=== PATIENT | male | born 1980 | race Caucasian/White ===

== ENCOUNTER 2018-01-05 22:40 | Emergency (ER) | payer SELFPAY ==
[~2018-01-05] VITALS: Ht 167.6 cm; Wt 99.8 kg
[~2018-01-05 22:40] MED LIST: ALLO100 PO; COLCHICINE0.6 MG PO; CYCL10 PO; IBUP800 PO; INDO50 PO; Indomethacin50 MG PO; Naprosyn500 MG PO; Norco 5-325 Ta1 EACH PO; Percocet 5-3251 EACH PO; Ultram50 MG PO
[2018-01-06] MEDS ORDERED: INDO50 PO (01:20)
[2018-01-06] MEDS ORDERED: Norco 5-325 Ta1 EACH PO (02:25)
[2018-01-06] MEDS ORDERED: Prednisone50 MG PO (02:25)
== END 2018-01-06 02:43 | disposition home or self-care (01) ==
LOC: ER 22:40
DX: M10.9 Gout, unspecified (principal); Z87.891 Personal history of nicotine dependence
CPT/HCPCS: 99283; J1100

== ENCOUNTER 2018-07-17 12:07 | Emergency (ER) | payer OTHER ==
[~2018-07-17] VITALS: Ht 175.3 cm; Wt 99.8 kg
[~2018-07-17 12:07] MED LIST changes: +Prednisone50 MG PO
== END 2018-07-17 14:03 | disposition home or self-care (01) ==
LOC: ER 12:07
DX: M10.9 Gout, unspecified (principal); Z79.899 Other long term (current) drug therapy; Z87.891 Personal history of nicotine dependence
CPT/HCPCS: 99283

== ENCOUNTER 2018-08-17 11:15 | Emergency (ER) | payer OTHER ==
[~2018-08-17] VITALS: Ht 175.3 cm; Wt 106.6 kg
[2018-08-17] MEDS ORDERED: Percocet 5-3251 EACH PO (11:39)
[2018-08-17] MEDS ORDERED: Prednisone20 MG PO (11:39)
[2018-08-17] MEDS ORDERED: Indomethacin50 MG PO (11:39)
== END 2018-08-17 11:45 | disposition home or self-care (01) ==
LOC: ER 11:15
DX: M10.9 Gout, unspecified (principal); Z79.899 Other long term (current) drug therapy; Z87.891 Personal history of nicotine dependence
CPT/HCPCS: 99283

== ENCOUNTER 2018-09-02 17:02 | Emergency (ER) | payer OTHER ==
[~2018-09-02] VITALS: Ht 175.3 cm; Wt 102.1 kg
[~2018-09-02 17:02] MED LIST changes: +Prednisone20 MG PO
[2018-09-02] MEDS ORDERED: Prednisone10 MG PO (18:07)
[2018-09-02] MEDS ORDERED: Percocet 5-3251 EACH PO (18:25)
== END 2018-09-02 18:40 | disposition home or self-care (01) ==
LOC: ER 17:02
DX: M10.9 Gout, unspecified (principal); Z87.891 Personal history of nicotine dependence; Z79.899 Other long term (current) drug therapy
CPT/HCPCS: 99282

== ENCOUNTER 2018-10-24 03:48 | Emergency (ER) | payer OTHER ==
[~2018-10-24] VITALS: Ht 175.3 cm; Wt 102.1 kg
[~2018-10-24 03:48] MED LIST changes: +Prednisone10 MG PO
[2018-10-24] MEDS ORDERED: ONDA4ODT MM (04:16)
[2018-10-24] MEDS ORDERED: Norco 5-325 Ta1 EACH PO (04:16)
== END 2018-10-24 04:59 | disposition home or self-care (01) ==
LOC: ER 03:48
DX: M10.9 Gout, unspecified (principal); Z79.899 Other long term (current) drug therapy; Z79.52 Long term (current) use of systemic steroids; Z87.891 Personal history of nicotine dependence
CPT/HCPCS: 96372; 99283-25; A9270-GY; J1170; J1885

== ENCOUNTER 2018-12-10 17:49 | Emergency (ER) | payer OTHER ==
[~2018-12-10] VITALS: Ht 175.3 cm; Wt 104.3 kg
[~2018-12-10 17:49] MED LIST changes: +ONDA4ODT MM
[2018-12-10] MEDS ORDERED: Percocet 5-3251 EACH PO (18:13)
[2018-12-10] MEDS ORDERED: Pepcid20 MG PO (18:13)
[2018-12-10] MEDS ORDERED: PRED10 PO (18:13)
== END 2018-12-10 18:48 | disposition home or self-care (01) ==
LOC: ER 17:49
DX: M10.9 Gout, unspecified (principal); Z79.899 Other long term (current) drug therapy; Z87.891 Personal history of nicotine dependence
CPT/HCPCS: 96372; 99283-25; A9270; J1170; J7512

== ENCOUNTER 2018-12-16 09:49 | Emergency (ER) | payer OTHER ==
[~2018-12-16] VITALS: Ht 175.3 cm; Wt 106.6 kg
[~2018-12-16 09:49] MED LIST changes: +PRED10 PO; +Pepcid20 MG PO
[2018-12-16] MEDS ORDERED: Indomethacin50 MG PO (09:58)
[2018-12-16] MEDS ORDERED: Percocet 5-3251 EACH PO (10:41)
== END 2018-12-16 10:58 | disposition home or self-care (01) ==
LOC: ER 09:49
DX: M10.9 Gout, unspecified (principal); Z79.52 Long term (current) use of systemic steroids; Z87.891 Personal history of nicotine dependence
CPT/HCPCS: 96372; 99283-25; J1170

== ENCOUNTER → 2018-12-24 | Outpatient (CLI) | payer OTHER ==
[~2018-12-24] MED LIST changes: +IBUP600 PO; +MITIGARE0.6 MG PO; +Voltaren100 GM TOP
[2018-12-24 11:46] LABS: BASOPHILS ABSOLUTE AUTO 0.04 K/mm3 (0.00-0.23); BASOPHILS PERCENT AUTO 0 % (0-2); EOSINOPHILS ABSOLUTE AUTO 0.07 K/mm3 (0.00-0.68); EOSINOPHILS PERCENT AUTO 1 % (0-6); Hematocrit 49.2 % (37.0-53.0); IMMATURE GRAN ABSOLUTE AUTO 0.06 K/mm3 (0.00-0.10); IMMATURE GRAN PERCENT AUTO 1 % (0-1); LYMPHOCYTES ABSOLUTE AUTO 1.75 K/mm3 (0.84-5.20); LYMPHOCYTES PERCENT AUTO 16 % (21-46); MONOCYTES ABSOLUTE AUTO 0.69 K/mm3 (0.16-1.47); MONOCYTES PERCENT AUTO 6 % (4-13); Mean Corpuscular HGB 30.1 pg (26.0-34.0); Mean Corpuscular HGB Conc 34.6 g/dL (31.5-36.5); Mean Corpuscular Volume 87 fL (80-100); Mean Platelet Volume 10.8 fL (9.1-12.4); NEUTROPHILS ABSOLUTE AUTO 8.42 K/mm3 (1.96-9.15); NEUTROPHILS PERCENT AUTO 76 % (41-73); Platelet Count 227 K/mm3 (150-400); RDW Coefficient Variation 13.4 % (11.7-14.2); RDW Standard Deviation 42.6 fL (35.1-46.3); Red Blood Cell Count 5.65 M/mm3 (4.30-5.90); White Blood Cell Count 11.03 K/mm3 (4.00-11.30)
[2018-12-24 11:55] LABS: Albumin, Blood 3.9 g/dL (3.4-5.0); Albumin/Globulin Ratio 1.1 (0.8-1.8); Bilirubin, Total 0.2 mg/dL (0.1-1.0); Bun/Creatinine Ratio 8.3 (12.0-20.0); Calcium, Blood 9.1 mg/dL (8.5-10.1); Creatinine, Blood 1.33 mg/dL (0.60-1.20); Globulin, Blood 3.7 g/dL (2.2-4.0); Total Protein, Blood 7.6 g/dL (6.4-8.2); Uric Acid, Blood 8.3 mg/dL (3.5-7.2)
== END | disposition home or self-care (01) ==
LOC: LAB SHORT 11:39 → LAB EV 11:39
PROVIDERS: Family Medicine
DX: M10.9 Gout, unspecified (principal)
CPT/HCPCS: 80053; 84550; 85025; 85651; 86140

== ENCOUNTER 2019-02-13 10:16 | Emergency (ER) | payer OTHER ==
[~2019-02-13] VITALS: Ht 175.3 cm; Wt 102.1 kg
[~2019-02-13 10:16] MED LIST changes: -IBUP600 PO; -MITIGARE0.6 MG PO; -Voltaren100 GM TOP
[2019-02-13] MEDS ORDERED: MITIGARE0.6 MG PO (10:27)
[2019-02-13] MEDS ORDERED: Voltaren100 GM TOP (10:43)
[2019-02-13] MEDS ORDERED: CYCL10 PO (10:43)
[2019-02-13] MEDS ORDERED: IBUP600 PO (10:43)
== END 2019-02-13 10:54 | disposition home or self-care (01) ==
LOC: ER 10:16
DX: S46.911A Strain of unspecified muscle, fascia and tendon at shoulder and upper arm level, right arm, initial encounter (principal); W22.8XXA Striking against or struck by other objects, initial encounter; Z79.899 Other long term (current) drug therapy
CPT/HCPCS: 96372; 99283-25; A9270-GY; J1885

== ENCOUNTER 2019-04-18 02:32 | Emergency (ER) | payer OTHER ==
[~2019-04-18] VITALS: Ht 177.8 cm; Wt 99.8 kg
[~2019-04-18 02:32] MED LIST changes: +IBUP600 PO; +MITIGARE0.6 MG PO; +Voltaren100 GM TOP
== END 2019-04-18 04:32 | disposition home or self-care (01) ==
LOC: ER 02:32
DX: M10.9 Gout, unspecified (principal); Z87.891 Personal history of nicotine dependence; Z79.899 Other long term (current) drug therapy
CPT/HCPCS: 96372; 99283-25; A9270; A9270-GY; J1170

== ENCOUNTER 2019-08-27 16:13 | Emergency (ER) | payer OTHER ==
[~2019-08-27] VITALS: Ht 175.3 cm; Wt 99.8 kg
[2019-08-27] MEDS ORDERED: PRINIVIL10 MG PO (16:24)
[2019-08-27] MEDS ORDERED: Roxicodone5 MG PO (16:52)
== END 2019-08-27 16:58 | disposition home or self-care (01) ==
LOC: ER 16:13
DX: M10.9 Gout, unspecified (principal); Z79.899 Other long term (current) drug therapy; Z87.891 Personal history of nicotine dependence
CPT/HCPCS: 96372; 99282-25; J1170

== ENCOUNTER 2019-09-27 03:03 | Emergency (ER) | payer OTHER ==
[~2019-09-27] VITALS: Ht 175.3 cm; Wt 104.3 kg
[~2019-09-27 03:03] MED LIST changes: +PRINIVIL10 MG PO; +Roxicodone5 MG PO
== END 2019-09-27 05:05 | disposition home or self-care (01) ==
LOC: ER 03:03
DX: M10.9 Gout, unspecified (principal); Z79.899 Other long term (current) drug therapy; Z87.891 Personal history of nicotine dependence
CPT/HCPCS: 96372; 99283-25; A9270; J1170; J1885; J7512

== ENCOUNTER 2019-10-15 06:59 | Emergency (ER) | payer OTHER ==
[~2019-10-15] VITALS: Ht 175.3 cm; Wt 104.3 kg
[2019-10-15] MEDS ORDERED: Prinivil10 MG PO (07:21)
[2019-10-15] MEDS ORDERED: Norco 5-325 Ta1 EACH PO (07:28)
== END 2019-10-15 07:35 | disposition home or self-care (01) ==
LOC: ER 06:59
DX: M10.9 Gout, unspecified (principal); Z79.899 Other long term (current) drug therapy; Z87.891 Personal history of nicotine dependence
CPT/HCPCS: 99283

== ENCOUNTER 2019-11-18 19:22 | Emergency (ER) | payer OTHER ==
[~2019-11-18] VITALS: Ht 175.3 cm; Wt 104.3 kg
[~2019-11-18 19:22] MED LIST changes: +Prinivil10 MG PO
[2019-11-18] MEDS ORDERED: PRED10 PO (19:30)
[2019-11-18] MEDS ORDERED: Roxicodone5 MG PO (19:30)
== END 2019-11-18 19:34 | disposition home or self-care (01) ==
LOC: ER 19:22
DX: M10.9 Gout, unspecified (principal); Z79.899 Other long term (current) drug therapy; Z87.891 Personal history of nicotine dependence
CPT/HCPCS: 99282

== ENCOUNTER 2020-11-21 17:18 | Emergency (ER) | payer BC ==
[~2020-11-21] VITALS: Ht 175.3 cm; Wt 104.3 kg
[~2020-11-21 17:18] MED LIST changes: +Ativan1 MG PO; +LISI5 PO; +SERT20L
[2020-11-21 17:53] LABS: BASOPHILS ABSOLUTE AUTO 0.03 K/mm3 (0.00-0.23); BASOPHILS PERCENT AUTO 0 % (0-2); EOSINOPHILS ABSOLUTE AUTO 0.13 K/mm3 (0.00-0.68); EOSINOPHILS PERCENT AUTO 2 % (0-6); Hematocrit 43.3 % (37.0-53.0); IMMATURE GRAN ABSOLUTE AUTO 0.02 K/mm3 (0.00-0.10); IMMATURE GRAN PERCENT AUTO 0 % (0-1); LYMPHOCYTES ABSOLUTE AUTO 2.03 K/mm3 (0.84-5.20); LYMPHOCYTES PERCENT AUTO 23 % (21-46); MONOCYTES ABSOLUTE AUTO 0.59 K/mm3 (0.16-1.47); MONOCYTES PERCENT AUTO 7 % (4-13); Mean Corpuscular HGB 29.6 pg (26.0-34.0); Mean Corpuscular HGB Conc 34.6 g/dL (31.5-36.5); Mean Corpuscular Volume 86 fL (80-100); Mean Platelet Volume 11.1 fL (9.1-12.4); NEUTROPHILS ABSOLUTE AUTO 6.12 K/mm3 (1.96-9.15); NEUTROPHILS PERCENT AUTO 69 % (41-73); Platelet Count 206 K/mm3 (150-400); RDW Standard Deviation 40.1 fL (35.1-46.3); Red Blood Cell Count 5.06 M/mm3 (4.30-5.90); White Blood Cell Count 8.92 K/mm3 (4.00-11.30)
[2020-11-21 18:13] LABS: Alanine Aminotransfer (ALT/SGP 63 U/L (12-78); Albumin, Blood 3.9 g/dL (3.4-5.0); Albumin/Globulin Ratio 1.1 (0.8-1.8); Alk Phos 97 U/L (50-136); Anion Gap 8 mmol/L (6-16); Aspartate Aminotrans (AST/SGOT 42 U/L (12-37); Bilirubin, Total 0.3 mg/dL (0.1-1.0); Blood Urea Nitrogen 9 mg/dL (8-24); Bun/Creatinine Ratio 8.1 (12.0-20.0); CO2, Blood 22 mmol/L (21-32); Chloride, Blood 110 mmol/L (98-108); Creatinine, Blood 1.11 mg/dL (0.60-1.20); Globulin, Blood 3.5 g/dL (2.2-4.0); Glomerular Filtration Rate >60 (60-); Glucose, Blood 145 mg/dL (70-99); Potassium, Blood 3.8 mmol/L (3.5-5.5); Sodium, Blood 140 mmol/L (136-145); Total Protein, Blood 7.4 g/dL (6.4-8.2); Troponin I <0.015 ng/mL (0.000-0.040)
[2020-11-21] MEDS ORDERED: LORA.5 PO (21:59)
== END 2020-11-21 22:32 | disposition home or self-care (01) ==
LOC: ER 17:18
PROVIDERS: Physician Assistant
DX: F41.9 Anxiety disorder, unspecified (principal); R07.9 Chest pain, unspecified; I10 Essential (primary) hypertension; Z79.899 Other long term (current) drug therapy
CPT/HCPCS: 36415; 71046; 80053; 84484; 85025; 93005; 93010; 96374; 99284-25; A9270; J2060

== ENCOUNTER 2020-12-21 16:28 | Emergency (ER) | payer BC ==
[~2020-12-21] VITALS: Ht 175.3 cm; Wt 107.7 kg
[~2020-12-21 16:28] MED LIST changes: +LORA.5 PO
[2020-12-21] MEDS ORDERED: Deltasone 10 mg10 MG PO (17:07)
[2020-12-21] MEDS ORDERED: INDO50 PO (17:08)
== END 2020-12-21 17:19 | disposition home or self-care (01) ==
LOC: ER 16:28
DX: M10.9 Gout, unspecified (principal); I10 Essential (primary) hypertension; F41.9 Anxiety disorder, unspecified; Z79.899 Other long term (current) drug therapy; Z87.891 Personal history of nicotine dependence
CPT/HCPCS: 96372; 99282-25; J1885; J7512

== ENCOUNTER 2021-01-06 03:00 | Emergency (ER) | payer BC ==
[~2021-01-06] VITALS: Ht 175.3 cm; Wt 104.3 kg
[~2021-01-06 03:00] MED LIST changes: +Deltasone 10 mg10 MG PO
== END 2021-01-06 06:32 | disposition home or self-care (01) ==
LOC: ER 03:00
DX: M10.9 Gout, unspecified (principal); I10 Essential (primary) hypertension; Z87.891 Personal history of nicotine dependence
CPT/HCPCS: 96372; 99283-25; A9270; J1100

== ENCOUNTER 2021-02-16 02:05 | Emergency (ER) | payer BC ==
[~2021-02-16] VITALS: Ht 175.3 cm; Wt 99.8 kg
[2021-02-16] MEDS ORDERED: PROP10 PO (03:26)
[2021-02-16] MEDS ORDERED: ZOLOFT100 M6 PO (03:26)
[2021-02-16] MEDS ORDERED: PARO30 PO (03:26)
[2021-02-16] MEDS ORDERED: Prednisone20 MG PO (06:14)
== END 2021-02-16 07:05 | disposition home or self-care (01) ==
LOC: ER 02:05
DX: M10.9 Gout, unspecified (principal); I10 Essential (primary) hypertension; Z79.899 Other long term (current) drug therapy
CPT/HCPCS: 96372; 99283-25; J1170; J1885

== ENCOUNTER 2021-06-14 22:57 | Emergency (ER) | payer BC ==
[~2021-06-14] VITALS: Ht 177.8 cm; Wt 104.3 kg
[~2021-06-14 22:57] MED LIST changes: +PARO30 PO; +PROP10 PO; +ZOLOFT100 M6 PO
[2021-06-15] MEDS ORDERED: PRED20 PO (00:11)
[2021-06-15] MEDS ORDERED: HYDR1TAB94 PO (19:15)
== END 2021-06-15 00:27 | disposition home or self-care (01) ==
LOC: ER 22:57
DX: M10.9 Gout, unspecified (principal); I10 Essential (primary) hypertension
CPT/HCPCS: 99282; A9270; J7512

== ENCOUNTER 2021-06-28 21:29 | Emergency (ER) | payer BC ==
[~2021-06-28] VITALS: Ht 175.3 cm; Wt 104.3 kg
[~2021-06-28 21:29] MED LIST changes: +HYDR1TAB94 PO; +PRED20 PO
[2021-06-29] MEDS ORDERED: IBUP400 PO (00:10)
[2021-06-29] MEDS ORDERED: ACET500 PO (00:10)
[2021-06-29] MEDS ORDERED: Robaxin750 MG PO (00:10)
== END 2021-06-29 00:38 | disposition home or self-care (01) ==
LOC: ER 21:29
DX: S92.534A Nondisplaced fracture of distal phalanx of right lesser toe(s), initial encounter for closed fracture (principal); S39.012A Strain of muscle, fascia and tendon of lower back, initial encounter; I10 Essential (primary) hypertension; W22.8XXA Striking against or struck by other objects, initial encounter
CPT/HCPCS: 72100; 73660; 96372; 99283-25; A9270; J1885

== ENCOUNTER 2021-10-31 00:02 | Emergency (ER) | payer OTHER ==
[~2021-10-31] VITALS: Ht 175.3 cm; Wt 104.3 kg
[~2021-10-31 00:02] MED LIST changes: +ACET500 PO; +IBUP400 PO; +RAYOS PO; +Robaxin750 MG PO
== END 2021-10-31 05:46 | disposition home or self-care (01) ==
LOC: ER 00:02
DX: M10.9 Gout, unspecified (principal); I10 Essential (primary) hypertension; Z79.899 Other long term (current) drug therapy
CPT/HCPCS: 96374; 96375; 99283-25; A9270; J1170; J1885

== ENCOUNTER 2021-11-27 00:21 | Emergency (ER) | payer OTHER ==
[~2021-11-27] VITALS: Ht 175.3 cm; Wt 99.8 kg
== END 2021-11-27 03:00 | disposition home or self-care (01) ==
LOC: ER 00:21
DX: M10.9 Gout, unspecified (principal); I10 Essential (primary) hypertension; Z79.899 Other long term (current) drug therapy
CPT/HCPCS: A9270; J1170

== ENCOUNTER 2022-01-25 18:33 | Emergency (ER) | payer OTHER ==
[~2022-01-25] VITALS: Ht 175.3 cm; Wt 104.3 kg
[2022-01-25] MEDS ORDERED: PRED20 PO (19:24)
== END 2022-01-25 19:43 | disposition home or self-care (01) ==
LOC: ER 18:33
DX: M10.9 Gout, unspecified (principal); I10 Essential (primary) hypertension; Z87.891 Personal history of nicotine dependence; Z79.899 Other long term (current) drug therapy; Z79.52 Long term (current) use of systemic steroids
CPT/HCPCS: 99283; A9270; J7512

== ENCOUNTER 2022-03-30 02:05 | Emergency (ER) | payer OTHER ==
[~2022-03-30] VITALS: Ht 175.3 cm; Wt 104.3 kg
[2022-03-30] MEDS ORDERED: PRED10 PO (05:49)
[2022-03-30] MEDS ORDERED: IBUP800 PO (05:49)
[2022-03-30] MEDS ORDERED: Norco 5-325 Ta1 EACH PO (05:49)
== END 2022-03-30 06:17 | disposition home or self-care (01) ==
LOC: ER 02:05
DX: M10.9 Gout, unspecified (principal); I10 Essential (primary) hypertension; F41.9 Anxiety disorder, unspecified; Z79.899 Other long term (current) drug therapy; Z79.52 Long term (current) use of systemic steroids
CPT/HCPCS: 96372; 99283-25; A9270; J1170

== ENCOUNTER → 2022-09-27 | Outpatient (CLI) | payer OTHER | END | disposition home or self-care (01) | LOC: LAB SHORT 11:22 | DX: M10.9 Gout, unspecified (principal) | CPT/HCPCS: 84550 ==

== ENCOUNTER 2024-01-19 19:45 | Emergency (ER) | payer OTHER ==
[~2024-01-19] VITALS: Ht 175.3 cm; Wt 99.8 kg
[~2024-01-19 19:45] MED LIST changes: +BUPR150ER; +ZOLOFT10013 PO
[2024-01-19 20:00] VITALS: BP 154/80
[2024-01-19] MEDS ORDERED: Ketorolac Tromethamine 30mg Vial IM ONE (21:45)
[2024-01-19] MEDS ORDERED: Acetaminophen 500 MG Tab PO ONE (21:45)
== END 2024-01-19 22:43 | disposition home or self-care (01) ==
LOC: ER 19:45
DX: S43.401A Unspecified sprain of right shoulder joint, initial encounter (principal); W01.10XA Fall on same level from slipping, tripping and stumbling with subsequent striking against unspecified object, initial encounter; Z79.899 Other long term (current) drug therapy; M10.9 Gout, unspecified; I10 Essential (primary) hypertension
CPT/HCPCS: 73030; 96372; 99283-25; A9270; J1885

== ENCOUNTER 2024-02-05 10:47 | Inpatient (IN) | payer OTHER ==
[~2024-02-05] VITALS: Ht 175.3 cm; Wt 82.8 kg
[2024-02-05] VITALS (13 sets, daily range): BP systolic 129–173; BP diastolic 83–110
[2024-02-05] MEDS ORDERED: Ketorolac Tromethamine 15mg Vial IV ONE (11:15)
[2024-02-05] MEDS ORDERED: NS 1,000 ML IV SCH ×2 (11:15→12:55)
[2024-02-05 11:38] LABS: BASOPHILS ABSOLUTE AUTO 0.04 K/mm3 (0.00-0.23); BASOPHILS PERCENT AUTO 0 % (0-2); EOSINOPHILS ABSOLUTE AUTO 0.01 K/mm3 (0.00-0.68); EOSINOPHILS PERCENT AUTO 0 % (0-6); Hematocrit 44.3 % (37.0-53.0); Hemoglobin 16.7 g/dL (13.5-17.5); IMMATURE GRAN ABSOLUTE AUTO 0.07 K/mm3 (0.00-0.10); IMMATURE GRAN PERCENT AUTO 0 % (0-1); LYMPHOCYTES ABSOLUTE AUTO 1.76 K/mm3 (0.84-5.20); LYMPHOCYTES PERCENT AUTO 10 % (21-46); MONOCYTES ABSOLUTE AUTO 0.81 K/mm3 (0.16-1.47); MONOCYTES PERCENT AUTO 5 % (4-13); Mean Corpuscular HGB 30.5 pg (26.0-34.0); Mean Corpuscular HGB Conc 37.7 g/dL (31.5-36.5); Mean Corpuscular Volume 81 fL (80-100); Mean Platelet Volume 13.2 fL (9.1-12.4); NEUTROPHILS ABSOLUTE AUTO 14.79 K/mm3 (1.96-9.15); NEUTROPHILS PERCENT AUTO 85 % (41-73); Platelet Count 281 K/mm3 (150-400); RDW Coefficient Variation 12.4 % (11.7-14.2); RDW Standard Deviation 36.2 fL (35.1-46.3); Red Blood Cell Count 5.48 M/mm3 (4.30-5.90); White Blood Cell Count 17.48 K/mm3 (4.00-11.30)
[2024-02-05 12:00] LABS: Magnesium, Blood 2.3 mg/dL (1.6-2.4)
[2024-02-05 12:02] LABS: Albumin, Blood 4.2 g/dL (3.4-5.0); Bilirubin, Total 1.1 mg/dL (0.1-1.0); Bun/Creatinine Ratio 18.6 (12.0-20.0); Calcium, Blood 10.3 mg/dL (8.5-10.1); Creatinine, Blood 1.02 mg/dL (0.60-1.20); Globulin, Blood 4.2 g/dL (2.2-4.0); Potassium, Blood 4.5 mmol/L (3.5-5.5); Total Protein, Blood 8.4 g/dL (6.4-8.2)
[2024-02-05] MEDS ORDERED: ESCI10 (12:44)
[2024-02-05] MEDS ORDERED: FentaNYL Citrate 50 MCG/ML 2 ML Injection IV ONE (12:55)
[2024-02-05] MEDS ORDERED: Ondansetron HCl 2 MG / ML 2ML Vial IV ONE (12:55)
[2024-02-05] MEDS ORDERED: HYDROmorphone HCl/Pf 1MG SYR IV PRN ×2 (13:25→17:05)
[2024-02-05] MEDS ORDERED: CeFAZolin Sodium 2,000 MG in NS 100 ML IV SCH (16:00)
[2024-02-05 16:49] LABS: Albumin, Blood 3.7 g/dL (3.4-5.0); Bilirubin, Total 0.8 mg/dL (0.1-1.0); Bun/Creatinine Ratio 17.4 (12.0-20.0); Calcium, Blood 9.1 mg/dL (8.5-10.1); Creatinine, Blood 1.15 mg/dL (0.60-1.20); Globulin, Blood 3.7 g/dL (2.2-4.0); Potassium, Blood 5.1 mmol/L (3.5-5.5); Total Protein, Blood 7.4 g/dL (6.4-8.2)
[2024-02-05] MEDS ORDERED: Ondansetron HCl 2 MG / ML 2ML Vial IV PRN (17:05)
[2024-02-05] MEDS ORDERED: Dextrose 50% 50 ML Syringe IV PRN (17:15)
[2024-02-05] MEDS ORDERED: Insulin Regular 100 Unit/ML 1ML Dose IV ONE (17:15)
[2024-02-05] MEDS ORDERED: Potassium Chloride 20 MEQ in Sodium Chloride 0.45% 1,000 ML IV SCH (17:30)
[2024-02-05] MEDS ORDERED: Insulin Human Regular 100 UNIT in NS 100 ML IV SCH (17:35)
[2024-02-05] MEDS ORDERED: Zolpidem Tartrate 10 MG Tab PO PRN (18:40)
[2024-02-05] MEDS ORDERED: Pantoprazole Sodium 40 MG Injection IV SCH (19:00)
[2024-02-05 19:06] LABS: Base Excess Venous -8.8 mmol/L; Bicarbonate Venous 18.6 mmol/L (24.0-30.0); PCO2 Venous 28.7 mmHg (38-42); pH Blood Venous 7.37 (7.34-7.37)
[2024-02-05 19:54] LABS: Source, Urine Clean Catch
[2024-02-05 20:03] LABS: Appearance, Urine Clear (Clear); Bilirubin, Urine Neg (Neg); Blood, Urine Neg (Neg); Color, Urine Yellow (P-Yellow); Glucose Qualitative, Urine 4+ (Neg); Ketones, Urine 3+ (Neg); Leukocyte Esterase, Urine Neg (Neg); Nitrite, Urine Neg (Neg); Protein, Urine Neg (Neg); Specific Gravity, Urine 1.015 (1.003-1.022); Urobilinogen, Urine NORM (Normal)
[2024-02-05 20:37] LABS: Bun/Creatinine Ratio 18.7 (12.0-20.0); Calcium, Blood 8.7 mg/dL (8.5-10.1); Creatinine, Blood 1.07 mg/dL (0.60-1.20)
[2024-02-05] MEDS ORDERED: HydrALAZINE HCl 20 MG / ML 1ML Vial IV PRN (21:15)
--- NOTE | 2024-02-05 22:00 | NUR ---
ARRIVAL TO ICU PT ARRIVED TO ICU AT 1850. RECIEVED REPORT FROM BARI RN; ADMIT FOR DKA, AND CHOLECYSTITIS WITH CHOLELITHIASIS; CURRENTLY ON AN INSULIN GTT; SEE FLOWSHEET FOR TITRATION. HE IS A/O X4 AND ABLE TO MAKE HIS NEEDS KNOWN. SAFELY AMBULATES FROM BED TO USE URINAL BUT STILL ENCOURAGED TO USE CALL LIGHT FOR LINE MANAGEMENT. SPO2 >98% ON RA. AFEBRILE. HR 60-70'S. BP STABLE. PRN DILAUDID GIVEN FOR 6/10 EPIGASTRIC PAIN; PRN HELPFUL. DR THOMSON AT BEDSIDE TO EVALUATE; HE STATED THAT HE WOULD BE BACK IN THE AM TO FOLLOW UP. PT TOLERATING ICE CHIPS WELL WITH NO NAUSEA. 1/2NS WITH 20MEQ OF KCL INFUSING AT 250ML/HR. SEE ADMISSION ASSESSMENT FOR FULL ASSESSMENT.
[2024-02-05] MEDS ORDERED: CLON.5 PO (23:08)
[2024-02-05] MEDS ORDERED: COLCHICINE0.6 MG PO (23:09)
[2024-02-06] VITALS (23 sets, daily range): BP systolic 122–169; BP diastolic 74–120
--- NOTE | 2024-02-06 | NUR ---
UPDATE CALL MADE TO DR COX REGARDING GLUCOSE <250; SHE PROVIDED ORDERS TO CHANGE TO D5 1/2NS WITH 20MEQ KCL AT 150ML/HR.
[2024-02-06] MEDS ORDERED: D5W-1/2NS KCl 20mEq 1,000 ML IV SCH (00:10)
[2024-02-06 00:42] LABS: Bun/Creatinine Ratio 17.6 (12.0-20.0); Calcium, Blood 8.7 mg/dL (8.5-10.1); Creatinine, Blood 0.97 mg/dL (0.60-1.20); Potassium, Blood 4.1 mmol/L (3.5-5.5)
[2024-02-06 04:48] LABS: Bicarbonate Venous 21.6 mmol/L (24.0-30.0); PCO2 Venous 42.8 mmHg (38-42); pH Blood Venous 7.33 (7.34-7.37)
[2024-02-06 04:49] LABS: Base Excess Venous -3.2 mmol/L
[2024-02-06 04:52] LABS: BASOPHILS ABSOLUTE AUTO 0.02 K/mm3 (0.00-0.23); BASOPHILS PERCENT AUTO 0 % (0-2); EOSINOPHILS ABSOLUTE AUTO 0.07 K/mm3 (0.00-0.68); EOSINOPHILS PERCENT AUTO 1 % (0-6); Hematocrit 36.2 % (37.0-53.0); Hemoglobin 12.9 g/dL (13.5-17.5); IMMATURE GRAN ABSOLUTE AUTO 0.03 K/mm3 (0.00-0.10); IMMATURE GRAN PERCENT AUTO 0 % (0-1); LYMPHOCYTES ABSOLUTE AUTO 3.11 K/mm3 (0.84-5.20); LYMPHOCYTES PERCENT AUTO 23 % (21-46); MONOCYTES ABSOLUTE AUTO 0.76 K/mm3 (0.16-1.47); MONOCYTES PERCENT AUTO 6 % (4-13); Mean Corpuscular HGB 30.4 pg (26.0-34.0); Mean Corpuscular HGB Conc 35.6 g/dL (31.5-36.5); Mean Corpuscular Volume 85 fL (80-100); Mean Platelet Volume 12.4 fL (9.1-12.4); NEUTROPHILS ABSOLUTE AUTO 9.62 K/mm3 (1.96-9.15); NEUTROPHILS PERCENT AUTO 71 % (41-73); Platelet Count 144 K/mm3 (150-400); RDW Coefficient Variation 12.9 % (11.7-14.2); RDW Standard Deviation 39.9 fL (35.1-46.3); Red Blood Cell Count 4.24 M/mm3 (4.30-5.90); White Blood Cell Count 13.61 K/mm3 (4.00-11.30)
[2024-02-06 05:18] LABS: Beta-hydroxybutyrate 2.5 mg/dL (0.2-2.8); Thyroid Stimulating Hormone 0.682 uIU/mL (0.360-4.800)
[2024-02-06 05:19] LABS: Albumin, Blood 3.1 g/dL (3.4-5.0); Bilirubin, Total 0.6 mg/dL (0.1-1.0); Bun/Creatinine Ratio 16.9 (12.0-20.0); Calcium, Blood 8.2 mg/dL (8.5-10.1); Creatinine, Blood 0.89 mg/dL (0.60-1.20); Potassium, Blood 3.9 mmol/L (3.5-5.5); Total Protein, Blood 6.1 g/dL (6.4-8.2)
--- NOTE | 2024-02-06 06:34 | NUR ---
SHIFT SUMMARY PT SLEEPING BUT FULLY AROUSABLE O X4. PT AMBULATORY. ROOM AIR SATS >94%. LUNGS CLEAR IN ALL DAN. H/O SLEEP APNEA W CPAP AT HOME BUT PT DID WELL W/O. SINUS RHYTHYM WITH HR IN 50S/60S AND BP 120-140/70-90. EPIGASTRIC PAIN 5-7 OUT OF 10 RADIATING TO RIGHT SIDE. ABDOMEN TTP THROUGHOUT WITH MILD DISTENTION. GALLBLADDER INFLAMMTION AND STONES ON RADIOGRAPHY. POTENTIAL SURGERY PENDING RESOLVING GLUCOSE. INSULIN GTT AT 5 UNITS PER HOUR WITH Q HOUR ACCUCHECKS/TITRATION. KCL IN 5% DEXTROSE AND 0.45% NACL @ 150/HOUR. SCDS NOT IN PLACE BUT NEEDED FOR PROPHALAXIS. REPORT TO BE GIVEN TO DEE. USES URINAL.
[2024-02-06 08:19] LABS: Bun/Creatinine Ratio 17.6 (12.0-20.0); Calcium, Blood 8.6 mg/dL (8.5-10.1); Creatinine, Blood 0.85 mg/dL (0.60-1.20); Potassium, Blood 3.8 mmol/L (3.5-5.5)
[2024-02-06] MEDS ORDERED: OxyCODONE HCL 5 MG TAB PO PRN (08:35)
--- NOTE | 2024-02-06 08:48 | NUR ---
Assumed care Patient is alert and oriented. He was sleeping upon arrival but woke easily at bedside report. Patient is on an insulin drip at 5u/hr and was upped to 6u/hr d/t glucose. Patient remains on D51/2ns 20kcl at 150/hr. Dr Trejo came to bedside and pt is going to be transitioned to s/s insulin and long acting, gap is closed. Patient has not voided yet this am but will call for aide. Patient has clear lung sounds t/o, abd soft/tender greatest on left side of abd from rest of abd when palpated. Patient has no edema, maew, afebrile, vs stable. Patient has normal sinus rhythm to sinus jorje at rest. Patient has 2 piv's to left hand and upper FA and a powerglide to right upper FA. All return blood and flush easily. Will continue care as directed.
[2024-02-06] MEDS ORDERED: ClonazePAM 0.5 MG Tab PO PRN (08:50)
[2024-02-06] MEDS ORDERED: Citalopram Hydrobromide 20 MG Tab PO SCH (09:00)
[2024-02-06] MEDS ORDERED: Insulin Glargine-Yfgn 100 Unit/mL 3 ML SYR SC ONE ×2 (09:00→18:00)
[2024-02-06] MEDS ORDERED: Enoxaparin 40 MG/0.4 ML SYR SC SCH (09:00)
[2024-02-06] MEDS ORDERED: Insulin Human Lispro 100 Units/ML 3ML Syringe SC SCH ×2 (12:00→21:00)
[2024-02-06] MEDS ORDERED: Nystatin 100,000 Unit/ML Susp 5 ML UDC SS SCH (13:00)
--- NOTE | 2024-02-06 14:10 | NUR ---
Pt. is awake in bed and welcomes my visit. Pt. is pleasant. Facilitate a life review that included the Pts. new diagnosis. Pt. displayed evidence of acceptance and a realistic understanding of the serious nature of his new diagnosis. Considered matters of melchor and belief. Pt. verbalized questions about the local evangelical community. Gave pastoral support and prayed with the Pt. Pt. verbalized gratitude for the spiritual care visit and welcomed this numerical control machine operator to return any time.
--- NOTE | 2024-02-06 18:30 | NUR ---
END OF SHIFT NOTE PT IS AWAKE ALERT AND ORIENTED. HE IS MAEW. HE HAS BEEN OUT OF BED TWICE TO VOID IN A URINAL. MOVING OK. HE HAS CONTINUED TO COMPLAIN OF PAIN T/O THE DAY NEEDING LONG ACTING OXYCODONE PO TWICE AND SHORT ACTING DILAUDID 0.5MG EVERY 2 TO 3 HRS. HIS PAIN IS LOW ZERO AND HIGH 6 OR 7 WITH NO ACTIVITY AND WITH THE TREATMENT DESCRIBED. PT IS EATTING REGULAR CONSISTENT CARB MEALS AND HOLDING IT DOWN W/O DIFFICULTY. HE WAS ON THE INSULIN GTT THIS MORNING BUT SINCE 1100 AM HE HAS BEEN COVERED WITH HUMALOG 4UNIT AND 8 UNIT FOR HIS GLUCOSE HIGH 318. HE IS ALSO GETTING GLARGINE INSULIN FOR LONG ACTING COVERAGE. 10 UNITS AHS BEEN GIVEN TO HIM THIS AFTERNOON AT 1800. HE REMAINS WITH 2 PIV'S ON LEFT ARM ANND HAND AND 1 POWERGLIDE TO RIGHT UPPER FORARM. HE HAS REMAINED AFEBRILE TODAY. HE IS GETTING AN ANTIBIOTIC/ SEE EMAR. HE HAS HAD A MODERATELY ELEVATED BLOOD PRESSURE BUT NOT OVER SBP GREATER THAN 16- OR 180 SO HE DID NOT GET HYDRALAZINE TODAY. HE HAS BEEN GETTING LOTS OF REAL TIME DIABETIC EDUCATION OVER COVERAGE AND DIET. HE IS EAGER TO UNDERSTAND HOW TO MANAGE THIS NEW DIAGNOSIS BETTER. WAS ALSO ENCOURAGED TO BE PRESENT FOR EDUCATION TO HELP HIM WHEN THEY ARE HOME. SHE HOWEVER HAD TO LEAVE EARLY THIS AM. TESTBOARD OPERATOR TO RESUME CARE AT 1900 TONIGHT.
[2024-02-06] MEDS ORDERED: Lisinopril 5 MG Tab PO SCH (21:00)
--- NOTE | 2024-02-06 21:19 | NUR ---
ASSUMPTION OF CARE: RECEIVED REPORT FROM DEE SURESH AT 1900. PT ALERT AND ORIENTED X4. PLEASANT AND COOPERATIVE, ANSWERS QUESTIONS APPROPRIATELY AND FOLLOWS COMMANDS. ON RA WITH SPO2 >95%. DENIES SOB. NEEDLE LEADER IN PLACE, SR/SB WITH HR 60'S-70'S. DENIES CHEST PAIN/PRESSURE. SBP 140'S-150'S. PT ENDORSES PAIN IN RIGHT UPPER QUADRANT OF ABDOMEN, STATES IT GETS WORSE WHEN EATING/DRINKING AND WITH MOVEMENT. STATES IT IS A CONSTANT, CRAMPING TYPE OF PAIN. ALLEVIATED WITH PRN PAIN MEDS PER MAR. ABLE TO STAND AT BEDSIDE AND USE URINAL. NO BM YET. POWERGLIDE TO RUFINO PATENT AND SALINE LOCKED. PIV'S TO LAC AND LH, PATENT AND SALINE LOCKED. BED LOW AND LOCKED, CALL LIGHT IN REACH.
[2024-02-07] VITALS (9 sets, daily range): BP systolic 123–142; BP diastolic 82–99
--- NOTE | 2024-02-07 05:14 | NUR ---
SHIFT SUMMARY: PT ABLE TO REST OFF AND ON T/O THE SHIFT. PT STILL HAVING SIGNIFICANT ABDOMINAL PAIN IN THE RIGHT UPPER QUADRANT. STATES THE PAIN IS UNCHANGED FROM EARLIER AND THAT IT IS STILL CONSTANT AND CRAMPY. ALLEVIATED WITH PRN PAIN MEDS PER EMAR. ABDOMEN IS FIRM TO TOUCH. PT REMAINS ON RA WITH SPO2 >95%. DENIES SOB. LUNGS CLEAR. MICROSTRATEGY DEVELOPER SB/SR WITH HR 50'S-60'S. SBP 120'S-140'S. DENIES CHEST PAIN/PRESSURE. POWERGLIDE TO RUFINO PATENT AND SALINE LOCKED. PIVS TO LAC/LH PATENT AND SALINE LOCKED. PT ABLE TO STAND AT BEDSIDE AND USE URINAL, VOIDING YELLOW URINE. NO BM THIS SHIFT. BED LOW AND LOCKED, CALL LIGHT IN REACH.
[2024-02-07 08:12] LABS: BASOPHILS ABSOLUTE AUTO 0.02 K/mm3 (0.00-0.23); BASOPHILS PERCENT AUTO 0 % (0-2); EOSINOPHILS ABSOLUTE AUTO 0.06 K/mm3 (0.00-0.68); EOSINOPHILS PERCENT AUTO 1 % (0-6); Hematocrit 39.7 % (37.0-53.0); Hemoglobin 14.2 g/dL (13.5-17.5); IMMATURE GRAN ABSOLUTE AUTO 0.02 K/mm3 (0.00-0.10); IMMATURE GRAN PERCENT AUTO 0 % (0-1); LYMPHOCYTES ABSOLUTE AUTO 2.01 K/mm3 (0.84-5.20); LYMPHOCYTES PERCENT AUTO 28 % (21-46); MONOCYTES ABSOLUTE AUTO 0.43 K/mm3 (0.16-1.47); MONOCYTES PERCENT AUTO 6 % (4-13); Mean Corpuscular HGB 30.5 pg (26.0-34.0); Mean Corpuscular HGB Conc 35.8 g/dL (31.5-36.5); Mean Corpuscular Volume 85 fL (80-100); NEUTROPHILS ABSOLUTE AUTO 4.73 K/mm3 (1.96-9.15); NEUTROPHILS PERCENT AUTO 65 % (41-73); Platelet Count 138 K/mm3 (150-400); RDW Coefficient Variation 12.7 % (11.7-14.2); RDW Standard Deviation 38.9 fL (35.1-46.3); Red Blood Cell Count 4.66 M/mm3 (4.30-5.90); White Blood Cell Count 7.27 K/mm3 (4.00-11.30)
[2024-02-07 08:26] LABS: Albumin, Blood 3.2 g/dL (3.4-5.0); Albumin/Globulin Ratio 0.9 (0.8-1.8); Bilirubin, Total 0.5 mg/dL (0.1-1.0); Bun/Creatinine Ratio 11.6 (12.0-20.0); Calcium, Blood 9.1 mg/dL (8.5-10.1); Creatinine, Blood 0.86 mg/dL (0.60-1.20); Globulin, Blood 3.4 g/dL (2.2-4.0); Potassium, Blood 3.9 mmol/L (3.5-5.5); Total Protein, Blood 6.6 g/dL (6.4-8.2)
[2024-02-07] MEDS ORDERED: Insulin Glargine-Yfgn 100 Unit/mL 3 ML SYR SC ONE (10:00)
[2024-02-07] MEDS ORDERED: NS 1,000 ML IV ONE (11:40)
[2024-02-07] MEDS ORDERED: D5W-1/2NS 1,000 ML IV SCH (11:40)
[2024-02-07] MEDS ORDERED: OxyCODONE HCL 5 MG TAB PO SCH (12:37)
[2024-02-07] MEDS ORDERED: Ketorolac Tromethamine 30mg Vial IM ONE (13:00)
[2024-02-07 13:22] LABS: Bun/Creatinine Ratio 11.4 (12.0-20.0); Calcium, Blood 9.1 mg/dL (8.5-10.1); Creatinine, Blood 0.88 mg/dL (0.60-1.20); Potassium, Blood 3.6 mmol/L (3.5-5.5)
--- NOTE | 2024-02-07 16:28 | NUR ---
Pt. is awake in bed and welcomes my visit. Pt. displays evidence of significant pain, and verbalized that he had just returned from having nuclear scans, and that the process brought great discomfort. Pt. is pleasant, however. Pt. displayed evidence of engagement and awareness, and verbalized the expectation that his family would visit him this evening. Prayed with Pt. Pt. verbalized gratitude for the spiritual care visit and welcomed this multifocal lens inspector to return.
--- NOTE | 2024-02-07 20:22 | NUR ---
ASSUMPTION OF CARE Pt resting in hospital bed, oriented x4, family at bedside. Vital signs stable, pt on room air, tele in place, denies chest pain or shortness of breath. Pt continues to report abdominal pain, scheduled pain medication adequate for pain control. Tolerating PO intake, denies issues. Pt ambulates independently with steady gait. HS glucose 235, no insulin coverage indicated. Diabetic education provided, pt has handout of director speech and hearing department at bedside and refers to this for home meal options. Encouraged patient to write down questions he has regarding new diagnosis and also to work closely with PCP to ensure patient is able to manage diabetes with resources/tools that work for him. Pt educated on s/sx of low blood sugar.
[2024-02-08 00:16] VITALS: BP 129/82
[2024-02-08 04:28] VITALS: BP 156/99
--- NOTE | 2024-02-08 05:57 | NUR ---
SHIFT SUMMARY Pt rested well throughout night, remains oriented and vital signs stable on room air. Pt continues to report abdominal pain, PRN dose of IV dilaudid given once this shift, pt declined 0400 scheduled oxicodone. Pt unsure of last bowel movement, EMR shows last BM 02/04, pt states he does not feel constipated, educated patient on side effects of narcotic pain medications. Pt denies any issues.
[2024-02-08 07:26] VITALS: BP 154/91
[2024-02-08] MEDS ORDERED: Docusate Sodium 100 MG Cap PO SCH (09:00)
[2024-02-08 09:42] LABS: SERUM, C-PEPTIDE 2.1 ng/mL (0.5-3.3)
[2024-02-08 09:48] LABS: BASOPHILS ABSOLUTE AUTO 0.03 K/mm3 (0.00-0.23); BASOPHILS PERCENT AUTO 0 % (0-2); EOSINOPHILS ABSOLUTE AUTO 0.04 K/mm3 (0.00-0.68); EOSINOPHILS PERCENT AUTO 0 % (0-6); Hematocrit 41.5 % (37.0-53.0); Hemoglobin 14.7 g/dL (13.5-17.5); IMMATURE GRAN ABSOLUTE AUTO 0.03 K/mm3 (0.00-0.10); IMMATURE GRAN PERCENT AUTO 0 % (0-1); LYMPHOCYTES ABSOLUTE AUTO 1.06 K/mm3 (0.84-5.20); LYMPHOCYTES PERCENT AUTO 12 % (21-46); MONOCYTES ABSOLUTE AUTO 0.63 K/mm3 (0.16-1.47); MONOCYTES PERCENT AUTO 7 % (4-13); Mean Corpuscular HGB 29.9 pg (26.0-34.0); Mean Corpuscular HGB Conc 35.4 g/dL (31.5-36.5); Mean Corpuscular Volume 85 fL (80-100); Mean Platelet Volume 11.8 fL (9.1-12.4); NEUTROPHILS ABSOLUTE AUTO 7.11 K/mm3 (1.96-9.15); NEUTROPHILS PERCENT AUTO 80 % (41-73); Platelet Count 151 K/mm3 (150-400); RDW Coefficient Variation 12.4 % (11.7-14.2); Red Blood Cell Count 4.91 M/mm3 (4.30-5.90)
[2024-02-08 10:17] LABS: Albumin, Blood 3.5 g/dL (3.4-5.0); Albumin/Globulin Ratio 0.9 (0.8-1.8); Bilirubin, Total 0.7 mg/dL (0.1-1.0); Bun/Creatinine Ratio 10.8 (12.0-20.0); Calcium, Blood 9.1 mg/dL (8.5-10.1); Creatinine, Blood 0.93 mg/dL (0.60-1.20); Globulin, Blood 3.9 g/dL (2.2-4.0); Potassium, Blood 3.7 mmol/L (3.5-5.5); Total Protein, Blood 7.4 g/dL (6.4-8.2)
[2024-02-08] MEDS ORDERED: Insulin Glargine-Yfgn 100 Unit/mL 3 ML SYR SC ONE (12:00)
[2024-02-08] MEDS ORDERED: Polyethylene Glycol 3350 17 gm PO ONE (12:15)
[2024-02-08] MEDS ORDERED: Magnesium Hydroxide Conc 10 ML UDC PO ONE (12:15)
--- NOTE | 2024-02-08 12:32 | NUR ---
Dr. Trejo here rounding on patient. Potential discharge tomorrow.
--- NOTE | 2024-02-08 15:05 | NUR ---
Pt. is awake in bed and welcomes my visit. Pt. is pleasant. Pt. verbalized an expectation that he would be staying in the hospital one more night. Considered matters of melchor and family. Pt. displayed evidence of confidence that he and his would be able to learn how to manage his diagnosis. Pt. verbalized gratitude for the spiritual care he has recieved, and welcomed this sugar grinder to return tomorrow before he is discharged.
[2024-02-08 20:14] VITALS: BP 132/84
[2024-02-09 03:46] VITALS: BP 124/82
[2024-02-09 03:58] VITALS: BP 146/104
--- NOTE | 2024-02-09 05:12 | NUR ---
Patient A&OX4, VSS on RA, denies pain this shift, refusing scheduled oxycodone. NSR on telemetry. BG checks ACHS, HS BGL 251. Patient self administering insulin with education. Last BM yesterday 02/07, denies constipation/abdominal pain this shift. Insomnia during the night.
[2024-02-09 07:24] VITALS: BP 132/81
[2024-02-09] MEDS ORDERED: LISI5 PO (11:22)
[2024-02-09] MEDS ORDERED: INSULIN LI100 UNIT/6 SC (11:23)
[2024-02-09] MEDS ORDERED: BASAGLAR K100 UNIT/5 SC (11:24)
--- NOTE | 2024-02-09 11:34 | NUR ---
Pt. is awake, dressed, and awaiting discharge confirmation when he welcomes my visit. Pt. is pleasant. And though the visit was brief, the Pt. verbalized that the visits have meant to him. Considered matters of melchor and yazidi. Prayed with Pt. Pt verbalized gratitdue for the spiritual care visit.
--- NOTE | 2024-02-09 14:20 | NUR ---
PT DISCHARGED TO HOME WITH ALL BELONGINGS, VERIFIED PHARMACY RECIEVED SCRIPTS, IV REMOVED W/O ISSUE.
== END 2024-02-09 13:30 | disposition home or self-care (01) | DRG 638 ==
LOC: ER 10:47 → PCU 10:48 → ICUE 10:48 → ER 10:48 → PCU 10:48 → ICUE 10:48 → PCU 02-06 02:01 → ICUE 02-06 02:02 → PCU 02-07 11:04
PROVIDERS: Physician Assistant; ADMIT Family Medicine
DX: E11.10 Type 2 diabetes mellitus with ketoacidosis without coma (principal); E87.1 Hypo-osmolality and hyponatremia; K80.20 Calculus of gallbladder without cholecystitis without obstruction; F41.8 Other specified anxiety disorders; I10 Essential (primary) hypertension; M10.9 Gout, unspecified; Z98.890 Other specified postprocedural states; Z79.899 Other long term (current) drug therapy
CPT/HCPCS: 74018; 74177; 76705; 78226; 80048; 80053; 81003; 82010; 82803; 82947; 83036; 83605; 83690; 83735; 84100; 84443; 84681; 85025; 93005; 93010; 94762; 96361; 96365-59; 96366; 96367; 96375; 96376; 99285-25; A9270; A9537; C1751; C9113; G0378; J0690; J1170; J1650; J1815; J1885; J2405; J3010; J3480; J7030; J7042; Q9967

== ENCOUNTER 2025-04-21 09:21 | Emergency (ER) | payer OTHER ==
[~2025-04-21] VITALS: Ht 177.8 cm; Wt 81.7 kg
[~2025-04-21 09:21] MED LIST changes: +BASAGLAR K100 UNIT/5 SC; +CLON.5 PO; +ESCI10; +INSULIN LI100 UNIT/6 SC
[2025-04-21 09:44] LABS: BASOPHILS ABSOLUTE AUTO 0.03 K/mm3 (0.00-0.23); BASOPHILS PERCENT AUTO 0 % (0-2); EOSINOPHILS ABSOLUTE AUTO 0.08 K/mm3 (0.00-0.68); EOSINOPHILS PERCENT AUTO 1 % (0-6); Hematocrit 42.7 % (37.0-53.0); Hemoglobin 15.1 g/dL (13.5-17.5); IMMATURE GRAN ABSOLUTE AUTO 0.02 K/mm3 (0.00-0.10); IMMATURE GRAN PERCENT AUTO 0 % (0-1); LYMPHOCYTES ABSOLUTE AUTO 1.94 K/mm3 (0.84-5.20); LYMPHOCYTES PERCENT AUTO 20 % (21-46); MONOCYTES ABSOLUTE AUTO 0.71 K/mm3 (0.16-1.47); MONOCYTES PERCENT AUTO 7 % (4-13); Mean Corpuscular HGB Conc 35.4 g/dL (31.5-36.5); Mean Corpuscular Volume 85 fL (80-100); NEUTROPHILS ABSOLUTE AUTO 6.86 K/mm3 (1.96-9.15); NEUTROPHILS PERCENT AUTO 71 % (41-73); NRBC ABSOLUTE 0.00 K/mm3 (0.00-0.02); NRBC Auto 0.0 /100 WBC (0.0-0.2); Platelet Count 271 K/mm3 (150-400); RDW Coefficient Variation 13.8 % (11.7-14.2); RDW Standard Deviation 42.8 fL (35.1-46.3)
[2025-04-21 10:09] LABS: Alanine Aminotransfer (ALT/SGP 26.0 U/L (12-78); Albumin, Blood 3.9 g/dL (3.4-5.0); Albumin/Globulin Ratio 1.0 (0.8-1.8); Anion Gap 11.0 mmol/L (3-11); Aspartate Aminotrans (AST/SGOT 36.0 U/L (12-37); Bilirubin, Total 0.8 mg/dL (0.1-1.0); Blood Urea Nitrogen 10.0 mg/dL (8-24); CO2, Blood 24.0 mmol/L (21-32); Calcium, Blood 10.3 mg/dL (8.5-10.1); Chloride, Blood 106.0 mmol/L (98-108); Creatinine, Blood 1.05 mg/dL (0.60-1.20); Globulin, Blood 3.9 g/dL (2.2-4.0); Glucose, Blood 118.0 mg/dL (70-99); Potassium, Blood 4.1 mmol/L (3.5-5.5); Sodium, Blood 137.0 mmol/L (136-145); Total Protein, Blood 7.8 g/dL (6.4-8.2)
[2025-04-21 12:01] LABS: Source, Urine Clean Catch
[2025-04-21 12:05] LABS: Bilirubin, Urine Neg (Neg); Color, Urine Yellow (P-Yellow); Glucose Qualitative, Urine Neg (Neg); Ketones, Urine 3+ (Neg); Leukocyte Esterase, Urine Neg (Neg); Protein, Urine 1+ (Neg); Specific Gravity, Urine 1.010 (1.003-1.022); Urobilinogen, Urine 1+ (Normal)
[2025-04-21 12:22] LABS: U Amphetamine Screen Not Detected; U Barbiturate Screen Not Detected; U Benzodiazapine Screen Not Detected; U Buprenorphine Screen Not Detected; U Cannabinoids Screen DETECTED; U Cocaine Screen Not Detected; U Methadone Screen Not Detected; U Methamphetamine Screen Not Detected; U Opiates Screen Not Detected; U Oxycodone Screen Not Detected; U Phencyclidine Screen Not Detected
[2025-04-21] MEDS ORDERED: Metoclopramide HCl 5MG / ML 2ML Vial IV ONE (12:55)
[2025-04-21] MEDS ORDERED: NS 1,000 ML IV SCH (12:55)
[2025-04-21 13:17] VITALS: BP 120/81
== END 2025-04-21 13:30 | disposition home or self-care (01) ==
LOC: ER 09:21
PROVIDERS: Student in an Organized Health Care Education/Training Program
DX: K52.9 Noninfective gastroenteritis and colitis, unspecified (principal); E83.52 Hypercalcemia; E11.9 Type 2 diabetes mellitus without complications; I10 Essential (primary) hypertension; M10.9 Gout, unspecified; Z87.891 Personal history of nicotine dependence; Z79.4 Long term (current) use of insulin; Z79.899 Other long term (current) drug therapy
CPT/HCPCS: 74177; 80053; 82947; 83690; 85025; 96374-59; 99285-25; J2765; J7030; Q9967

== ENCOUNTER 2025-04-22 11:56 | Emergency (ER) | payer OTHER ==
[~2025-04-22] VITALS: Ht 175.3 cm; Wt 81.7 kg
[2025-04-22 12:04] VITALS: BP 171/93
[2025-04-22] MEDS ORDERED: NS 1,000 ML IV SCH (12:05)
[2025-04-22] MEDS ORDERED: Ondansetron HCl 2 MG / ML 2ML Vial IV ONE (12:05)
[2025-04-22 12:27] LABS: BASOPHILS ABSOLUTE AUTO 0.02 K/mm3 (0.00-0.23); BASOPHILS PERCENT AUTO 0 % (0-2); EOSINOPHILS ABSOLUTE AUTO 0.00 K/mm3 (0.00-0.68); EOSINOPHILS PERCENT AUTO 0 % (0-6); Hematocrit 42.7 % (37.0-53.0); Hemoglobin 15.3 g/dL (13.5-17.5); IMMATURE GRAN ABSOLUTE AUTO 0.04 K/mm3 (0.00-0.10); IMMATURE GRAN PERCENT AUTO 0 % (0-1); LYMPHOCYTES ABSOLUTE AUTO 1.23 K/mm3 (0.84-5.20); LYMPHOCYTES PERCENT AUTO 8 % (21-46); MONOCYTES ABSOLUTE AUTO 0.74 K/mm3 (0.16-1.47); MONOCYTES PERCENT AUTO 5 % (4-13); Mean Corpuscular HGB Conc 35.8 g/dL (31.5-36.5); Mean Corpuscular Volume 84 fL (80-100); NEUTROPHILS ABSOLUTE AUTO 13.77 K/mm3 (1.96-9.15); NEUTROPHILS PERCENT AUTO 87 % (41-73); NRBC ABSOLUTE 0.00 K/mm3 (0.00-0.02); NRBC Auto 0.0 /100 WBC (0.0-0.2); Platelet Count 251 K/mm3 (150-400); RDW Coefficient Variation 14.0 % (11.7-14.2); RDW Standard Deviation 43.2 fL (35.1-46.3)
[2025-04-22 12:56] LABS: Alanine Aminotransfer (ALT/SGP 27.0 U/L (12-78); Albumin, Blood 4.3 g/dL (3.4-5.0); Albumin/Globulin Ratio 1.1 (0.8-1.8); Anion Gap 17.0 mmol/L (3-11); Aspartate Aminotrans (AST/SGOT 26.0 U/L (12-37); Bilirubin, Total 1.1 mg/dL (0.1-1.0); Blood Urea Nitrogen 16.0 mg/dL (8-24); CO2, Blood 21.0 mmol/L (21-32); Calcium, Blood 10.0 mg/dL (8.5-10.1); Chloride, Blood 102.0 mmol/L (98-108); Creatinine, Blood 1.23 mg/dL (0.60-1.20); Globulin, Blood 3.9 g/dL (2.2-4.0); Glucose, Blood 121.0 mg/dL (70-99); Potassium, Blood 3.6 mmol/L (3.5-5.5); Sodium, Blood 136.0 mmol/L (136-145); Total Protein, Blood 8.2 g/dL (6.4-8.2)
== END 2025-04-22 12:21 | disposition left against medical advice (07) ==
LOC: ER 11:56
PROVIDERS: Physician Assistant
DX: R10.9 Unspecified abdominal pain (principal); Z53.29 Procedure and treatment not carried out because of patient's decision for other reasons
CPT/HCPCS: 80053; 82947; 83690; 85025